=== PATIENT | female | born 1985 | race American Indian/Alaskan Native ===

== ENCOUNTER 2017-08-13 10:32 | Emergency (ER) | payer SELFPAY ==
[2017-08-13 11:20] VITALS: BP 107/77
[2017-08-13 11:48] LABS: Bacteria,Urine 1+ /HPF (Negative); Bilirubin,Urine NEG (Negative); Blood,Urine NEG (Negative); Ketones,Urine TR mg/dL (Negative); Leukocyte Esterase,Urine NEG (Negative); Mucus,Urine 2+ /HPF; Nitrite,Urine NEG (Negative)
== END 2017-08-13 17:27 | disposition left against medical advice (07) ==
LOC: ED 10:32
DX: Z53.21 Procedure and treatment not carried out due to patient leaving prior to being seen by health care provider (principal)
CPT/HCPCS: 81001

== ENCOUNTER 2017-09-26 14:52 | Emergency (ER) | payer MEDICAID ==
[2017-09-26 15:09] VITALS: BP 104/75
[2017-09-26 16:03] LABS: Basophils % (Auto) 0.7 % (0.0-1.8); Eosinophils % (Auto) 5.2 % (0.0-4.3); Hematocrit 36.1 % (30.3-42.9); Hemoglobin 12.1 gm/dl (10.1-14.3); Mean Corpuscular HGB Conc 34 % (30-34); Mean Corpuscular Hemoglobin 33 pg (28-32); Mean Corpuscular Volume 99 fl (79-97); Platelet Count 208 K/mm3 (140-440); Red Blood Count 3.66 M/mm3 (3.65-5.03); Red Cell Distribution Width 13.8 % (13.2-15.2); White Blood Count 3.3 K/mm3 (4.5-11.0)
[2017-09-26 17:11] LABS: Bilirubin,Urine Negative (Negative); Ketones,Urine Negative (Negative); Nitrite,Urine Negative (Negative); Protein,Urine <15 mg/dL mg/dL (Negative); Urobilinogen,Urine < 2.0 mg/dL (<2.0)
[2017-09-26 17:12] LABS: Blood,Urine Trace (Negative); Leukocyte Esterase,Urine Small (Negative)
--- NOTE | 2017-09-26 17:26 | Emergency Department Report ---
ED Female HPI - General Chief complaint: Vaginal Bleeding Stated complaint: POSSIBLE MISCARRIAGE Time Seen by Provider: 09/26/17 17:18 Source: patient Mode of arrival: Ambulatory Limitations: No Limitations - History of Present Illness Initial comments: Patient is 32 years old female with no significant past medical history she came today with 1 episode of vaginal bleeding happen yesterday. Patient stated that she checked into [facility] in July and she was told that she is and she did not have a follow-up since then. Patient denied any other symptoms. MD Complaint: vaginal bleeding - Related Data Previous Rx's Medication Instructions Recorded Last Taken Type Naproxen [Naprosyn] 500 mg PO BID #14 tablet 09/26/17 Unknown Rx Allergies Allergy/AdvReac Type Severity Reaction Status Date / Time Penicillins Allergy Unknown Verified 09/26/17 15:09 ED Review of Systems ROS: Stated complaint: POSSIBLE MISCARRIAGE Other details as noted in HPI Comment: All other systems reviewed and negative Constitutional: denies: chills, fever Cardiovascular: denies: chest pain, palpitations, dyspnea on exertion Gastrointestinal: denies: abdominal pain, nausea, vomiting Neurological: denies: headache, weakness ED Past Medical Hx - Past Medical History Previous Medical History?: Yes Hx HIV: Yes - Surgical History Past Surgical History?: Yes Additional Surgical History: Right hand surgery and had a I&d. - Social History Smoking Status: Former Smoker Substance Use Type: None - Medications Home Medications: Home Medications Medication Instructions Recorded Confirmed Last Taken Type Naproxen [Naprosyn] 500 mg PO BID #14 tablet 09/26/17 Unknown Rx ED Physical Exam - General Limitations: No Limitations General appearance: alert, in no apparent distress - Head Head exam: Present: normocephalic, normal inspection - ENT ENT exam: Present: normal exam, normal orophraynx, mucous membranes moist - Respiratory Respiratory exam: Present: normal lung sounds bilaterally - Cardiovascular Cardiovascular Exam: Present: regular rate, normal rhythm, normal heart sounds - GI/Abdominal GI/Abdominal exam: Present: soft, normal bowel sounds. Absent: distended, tenderness, guarding, rebound, rigid, mass, bruit, pulsatile mass - Extremities Exam Extremities exam: Present: normal inspection, full ROM - Back Exam Back exam: Present: normal inspection. Absent: CVA tenderness (R), CVA tenderness (L) - Neurological Exam Neurological exam: Present: alert, oriented X3, CN II-XII intact, normal gait - Skin Skin exam: Present: warm, intact ED Course Vital Signs 09/26/17 15:00 Temperature 98.6 F Pulse Rate 106 H Respiratory 16 Rate Blood Pressure 104/75 O2 Sat by Pulse 98 Oximetry ED Medical Decision Making - Lab Data Result diagrams: 09/26/17 15:43 Critical care attestation.: If time is entered above; I have spent that time in minutes in the direct care of this critically ill patient, excluding procedure time. ED Disposition Clinical Impression: Abnormal vaginal bleeding Disposition: DC-01 TO HOME OR SELFCARE Is pt being admited?: No Condition: Stable Instructions: Menstruation (ED) Prescriptions: Naproxen [Naprosyn] 500 mg PO BID #14 tablet Referrals: PRIMARY CARE, [Primary Care Provider] - 3-5 Days
== END 2017-09-26 17:34 | disposition home or self-care (01) ==
LOC: ED 14:52
DX: N93.8 Other specified abnormal uterine and vaginal bleeding (principal); Z88.0 Allergy status to penicillin; Z87.891 Personal history of nicotine dependence
CPT/HCPCS: 36415; 81001; 84702; 85025; 86850; 86900; 86901; 99283

== ENCOUNTER 2018-11-25 11:20 | Emergency (ER) | payer MEDICAID ==
[2018-11-25] MEDS ORDERED: TORADOL IM ONE (11:44)
--- NOTE | 2018-11-25 11:49 | Emergency Department Report ---
ED General Adult HPI - General Chief complaint: Fall Stated complaint: SLIP AND FALL Time Seen by Provider: 11/25/18 11:44 Source: patient Mode of arrival: Ambulatory Limitations: No Limitations - History of Present Illness Initial comments: This is a 33-year-old female, not known to this provider previously, who reports that she is not . Patient reports that 2 days ago, she had a mechanical slip and fall, landing on her lower back and head. She twisted her right knee, and left ankle. She is having pain in her lower back, right knee, and left lateral dorsal aspect of the foot. Pain aching and sharp, increases with palpation, range of motion, decreases with rest, does not radiate anywhere. She also complains of dry cough without fevers, chills or mucus production. She occasionally consumes tobacco, reports that people at home are occasionally smoking. She has not lost consciousness, there is no vomiting, there is no confusion, there is no ataxia. -: days(s) (2) Location: back, left, right, lower extremity Radiation: non-radiation Quality: aching Consistency: intermittent Improves with: rest Worsens with: movement Associated Symptoms: cough. denies: confusion, chest pain, diaphoresis, fever/chills, loss of appetite, malaise, nausea/vomiting, rash, seizure, shortness of breath, syncope, weakness - Related Data Previous Rx's Medication Instructions Recorded Last Taken Type Naproxen [Naprosyn] 500 mg PO BID #14 tablet 09/26/17 Unknown Rx Acetaminophen [Tylenol Arthritis] 650 mg PO Q6HR PRN #30 tablet.er 11/25/18 Unknown Rx Benzonatate [Tessalon Perles] 100 mg PO Q8HR PRN #30 capsule 11/25/18 Unknown Rx Fluticasone [Flonase] 1 spray NS QDAY #1 bottle 11/25/18 Unknown Rx Ibuprofen [Motrin] 600 mg PO Q8H PRN #30 tablet 11/25/18 Unknown Rx Allergies Allergy/AdvReac Type Severity Reaction Status Date / Time Penicillins Allergy Unknown Verified 09/26/17 15:09 ED Review of Systems ROS: Stated complaint: SLIP AND FALL Other details as noted in HPI Constitutional: malaise. denies: fever Eyes: denies: eye discharge ENT: congestion Respiratory: cough Cardiovascular: denies: chest pain Gastrointestinal: denies: abdominal pain Musculoskeletal: back pain, arthralgia, myalgia Skin: denies: lesions Neurological: denies: weakness, numbness, paresthesias, confusion, abnormal gait, vertigo ED Past Medical Hx - Past Medical History Previous Medical History?: Yes Hx Psychiatric Treatment: Yes (Depression, insomnia) Hx HIV: Yes Additional medical history: Herpes - Surgical History Past Surgical History?: Yes Additional Surgical History: Right hand surgery and had a I&d. - Social History Smoking Status: Current Every Day Smoker Substance Use Type: Marijuana - Medications Home Medications: Home Medications Medication Instructions Recorded Confirmed Last Taken Type Naproxen [Naprosyn] 500 mg PO BID #14 tablet 09/26/17 Unknown Rx Acetaminophen [Tylenol Arthritis] 650 mg PO Q6HR PRN #30 tablet.er 11/25/18 Unknown Rx Benzonatate [Tessalon Perles] 100 mg PO Q8HR PRN #30 capsule 11/25/18 Unknown Rx Fluticasone [Flonase] 1 spray NS QDAY #1 bottle 11/25/18 Unknown Rx Ibuprofen [Motrin] 600 mg PO Q8H PRN #30 tablet 11/25/18 Unknown Rx ED Physical Exam - General Limitations: No Limitations General appearance: alert, in no apparent distress - Head Head exam: Present: atraumatic, normocephalic - Eye Eye exam: Present: normal appearance, PERRL, EOMI, other (visual acuity intact to finger counting, color perception, reading at a close distance). Absent: nystagmus - ENT ENT exam: Present: normal exam, normal orophraynx, mucous membranes moist, normal external ear exam - Neck Neck exam: Present: normal inspection, full ROM. Absent: tenderness, meningismus - Respiratory Respiratory exam: Present: normal lung sounds bilaterally. Absent: respiratory distress - Cardiovascular Cardiovascular Exam: Present: regular rate, normal rhythm, normal heart sounds. Absent: bradycardia, tachycardia, irregular rhythm, systolic murmur, diastolic murmur, rubs, gallop - GI/Abdominal GI/Abdominal exam: Present: soft. Absent: distended, tenderness, guarding, re bound, rigid, pulsatile mass - Extremities Exam Extremities exam: Present: normal inspection, full ROM, other (2+ pulses noted in the bilateral upper, lower extremities. Compartments soft. No long bony tenderness. The pelvis is stable.). Absent: pedal edema, joint swelling, calf tenderness - Back Exam Back exam: Present: normal inspection, full ROM. Absent: tenderness, CVA tenderness (R), paraspinal tenderness, vertebral tenderness - Neurological Exam Neurological exam: Present: alert, oriented X3, CN II-XII intact, normal gait, other (Extraocular movements intact. Tongue midline. No facial droop. Facial sensation intact to light touch in the V1, V2, V3 distribution bilaterally. 5 and 5 strength in 4 extremities.. Sensation is intact to light touch in 4 extremities.). Absent: motor sensory deficit - Psychiatric Psychiatric exam: Present: normal affect, normal mood - Skin Skin exam: Present: warm, dry, intact, normal color. Absent: rash ED Course Vital Signs 11/25/18 11/25/18 11/25/18 11:26 11:57 12:07 Temperature 97.8 F 97.6 F Pulse Rate 81 18 L Respiratory 16 16 18 Rate Blood Pressure 118/88 Blood Pressure 130/72 [Right] O2 Sat by Pulse 97 Oximetry ED Medical Decision Making - Lab Data Vital Signs 11/25/18 11:26 Temperature 97.8 F Pulse Rate 81 Respiratory 16 Rate Blood Pressure 118/88 O2 Sat by Pulse 97 Oximetry - Medical Decision Making Differential diagnosis, including without limited to: Bronchitis, smoker's cough, sprain, strain, mechanical fall Assessment and plan: 33-year-old female who is 48 hours status post minor blunt trauma. GCS of 15, NIH score of 0,Patient is clinically sober at this time. The cervical spine is cleared through nexus and portuguese c spine rule On my initial assessment the patient is afebrile, speaking and playing on a cellular phone, and in no acute distress. She walks with a steady gait. She does not have any significant long bony tenderness. In addition, does not have any focal pulmonary findings and is saturating well on room air. Counseled patient to discontinue tobacco consumption, and to avoid exposure to tobacco consumption. Further counseled and reassured patient that musculoskeletal pain likely natural history secondary to minor blunt traumatic mechanism, and based on the available history and physical, and patient does not require emergency radiology studies. Patient will be discharged with appropriate pain medication and appropriate guidance and counseling. Critical care attestation.: If time is entered above; I have spent that time in minutes in the direct care of this critically ill patient, excluding procedure time. ED Disposition Clinical Impression: Bronchitis, History of fall Disposition: DC-01 TO HOME OR SELFCARE Is pt being admited?: No Does the pt Need Aspirin: No Condition: Stable Instructions: Acute Bronchitis (ED) Additional Instructions: Pain typically gets worse before it gets better. It will likely take 7-10 days for pain to completely resolve. Rest, avoid heavy lifting, and avoid strenuous physical activities. Follow up with the primary care doctor within the next 4-6 weeks. Discontinue tobacco consumption, and avoid exposure to individuals who are smoking tobacco and any substances. Take the pain medication as needed/directed, and return to the ER right away with new pain, worsened pain, migration of pain, projectile vomiting, change in mental status, confusion, inability to speak, inability to breathe, new, worsening or different symptoms. Prescriptions: Acetaminophen [Tylenol Arthritis] 650 mg PO Q6HR PRN #30 tablet.er PRN Reason: Pain Benzonatate [Tessalon Perles] 100 mg PO Q8HR PRN #30 capsule PRN Reason: Cough Fluticasone [Flonase] 1 spray NS QDAY #1 bottle Ibuprofen [Motrin] 600 mg PO Q8H PRN #30 tablet PRN Reason: Pain Referrals: [facility] [Provider Group] - as needed Forms: Work/School Release Form(ED)
[2018-11-25 12:09] VITALS: BP 130/72
== END 2018-11-25 12:07 | disposition home or self-care (01) ==
LOC: ED 11:20
DX: M54.5 Low back pain (principal); M25.561 Pain in right knee; M25.572 Pain in left ankle and joints of left foot; F32.9 Major depressive disorder, single episode, unspecified; F17.200 Nicotine dependence, unspecified, uncomplicated; F12.10 Cannabis abuse, uncomplicated; W01.0XXA Fall on same level from slipping, tripping and stumbling without subsequent striking against object, initial encounter; Y93.89 Activity, other specified; Y92.89 Other specified places as the place of occurrence of the external cause; Y99.8 Other external cause status
CPT/HCPCS: 96372; 99282; J1885

== ENCOUNTER 2020-05-21 17:11 | Emergency (ER) | payer MEDICAID ==
[2020-05-21 17:40] VITALS: BP 119/82
--- NOTE | 2020-05-21 19:35 | Emergency Department Report ---
Chief Complaint: Dental/Oral Stated Complaint: ABD PAIN Time Seen by Provider: 05/21/20 19:29 - HPI History of Present Illness: This is a 35-year-old female who presents the ED complaining of mild thrush of the mouth and swelling of the acid reflux. Patient states that she has not been able to follow-up with her doctor due to throat issues that she has been having. Patient also notes that she wants STD testing done. She denies fever/chills/nausea vomiting/abdominal pain/shortness of breath/dysuria or vaginal bleeding - ROS Review of Systems: As noted in HPI - Exam Vital Signs: Vital Signs 05/21/20 17:37 Temperature 99.4 F Pulse Rate 92 H Respiratory 16 Rate Blood Pressure 119/82 O2 Sat by Pulse 99 Oximetry Physical Exam: GENERAL: Alert and oriented x3, no apparent distress, Normal Gait, atraumatic. MOUTH:Mouth is well hydrated and without lesions. Tonsils nonerythematous or swollen, Uvula midline, Tongue not elevated. Mucous membranes are moist. Posterior pharynx clear, no exudate or lesions. Patent airways. White lesions seen at the top of Oral mucosa NECK: Supple. Non edematous, No carotid bruits. No lymphadenopathy or thyromegaly. SKIN: Warm and dry, No lesions, No ulceration or induration present. MSE screening note: Focused history and physical exam performed. Due to findings the following was ordered: ED Disposition for MSE Clinical Impression: Oral candidiasis Disposition: DC-01 TO HOME OR SELFCARE Is pt being admited?: No Does the pt Need Aspirin: No Condition: Stable Instructions: Oral Candidiasis (ED), Gastroesophageal Reflux Disease (ED) Additional Instructions: Make sure to follow up with the primary care physician as discussed. Take all your medications as you've been prescribed. If you have any worsening symptoms or develop new symptoms please return to ED immediately. Prescriptions: Fluconazole (Nf) [Diflucan TAB] 150 mg PO DAILY #5 tablet Omeprazole 20 mg PO DAILY #40 tablet. Famotidine [Pepcid] 20 mg PO BID #40 tablet Referrals: PRIMARY CARE, [Primary Care Provider] - 3-[address] [facility] [place] [Outside] - 3-5 Days [facility] [Outside] - 3-5 Days [facility] [Outside] - 3-5 Days Forms: Work/School Release Form(ED) Time of Disposition: 19:39
== END 2020-05-21 19:48 | disposition home or self-care (01) ==
LOC: ED 17:11
DX: B37.0 Candidal stomatitis (principal); Z88.0 Allergy status to penicillin
CPT/HCPCS: 99282

== ENCOUNTER 2020-07-19 10:14 | Emergency (ER) | payer MEDICAID ==
[2020-07-19] MEDS ORDERED: MORPHINE 4 MG/1 ML INJ IV ONE (11:03)
[2020-07-19] MEDS ORDERED: CLINDAMYCIN 600 MG/50 mL 600 MG/50 ML BAG IV ONE (11:03)
[2020-07-19] MEDS ORDERED: ONDANSETRON 4 MG/2 ML INJ IV ONE (11:03)
[2020-07-19] MEDS ORDERED: SODIUM CHLORIDE 0.9% 1000 ML 1,000 ML IV ONE (11:03)
[2020-07-19] MEDS ORDERED: cefTRIAXone/NS 2 GM/100 ML 2 GM/100 ML BAG IV ONE (11:37)
--- NOTE | 2020-07-19 11:45 | Emergency Department Report ---
<GARY MICHAEL - Last Filed: 07/19/20 18:05> ED Eye Problem HPI - General Chief complaint: Eye Problems Stated complaint: swollen eye Time Seen by Provider: 07/19/20 10:52 Source: patient Mode of arrival: Ambulatory Limitations: No Limitations - History of Present Illness Initial comments: Patient is a 35-year-old female presents emergency room with complaints of right eye swelling and pain that began last night. She states initially it felt like she had a stye and there was a small amount of swelling. She states that by midnight the swelling had significantly increased and she could not open the eye secondary to the swelling. She states that when she does manually open the eye her vision is still normal. She denies getting anything into the eye. She denies any contact lens use. She states that she has had associated drainage, crusting, matting of the eyelashes. She denies any fever or vomiting. she denies ever having this in the past. She has a past medical history of HIV and states that it has been a few months since she has taken her antivirals. She states that she previously used to go to [facility]. She has an allergy to penicillin. - Related Data Previous Rx's Medication Instructions Recorded Last Taken Type Naproxen [Naprosyn] 500 mg PO BID #14 tablet 09/26/17 Unknown Rx Acetaminophen [Tylenol Arthritis] 650 mg PO Q6HR PRN #30 tablet.er 11/25/18 Unknown Rx Benzonatate [Tessalon Perles] 100 mg PO Q8HR PRN #30 capsule 11/25/18 Unknown Rx Fluticasone [Flonase] 1 spray NS QDAY #1 bottle 11/25/18 Unknown Rx Ibuprofen [Motrin] 600 mg PO Q8H PRN #30 tablet 11/25/18 Unknown Rx Famotidine [Pepcid] 20 mg PO BID #40 tablet 05/21/20 Unknown Rx Fluconazole (Nf) [Diflucan TAB] 150 mg PO DAILY #5 tablet 05/21/20 Unknown Rx Omeprazole 20 mg PO DAILY #40 tablet. 05/21/20 Unknown Rx Allergies Allergy/AdvReac Type Severity Reaction Status Date / Time Penicillins Allergy Unknown Verified 09/26/17 15:09 ED Review of Systems Comment: All other systems reviewed and negative ED Past Medical Hx - Past Medical History Previous Medical History?: Yes Hx Psychiatric Treatment: Yes (Depression, insomnia) Hx HIV: Yes (not on anti-virals) Additional medical history: Herpes - Surgical History Additional Surgical History: Right hand surgery and had a I&d. - Social History Smoking Status: Never Smoker Substance Use Type: Marijuana - Medications Home Medications: Home Medications Medication Instructions Recorded Confirmed Last Taken Type Naproxen [Naprosyn] 500 mg PO BID #14 tablet 09/26/17 Unknown Rx Acetaminophen [Tylenol Arthritis] 650 mg PO Q6HR PRN #30 tablet.er 11/25/18 Unknown Rx Benzonatate [Tessalon Perles] 100 mg PO Q8HR PRN #30 capsule 11/25/18 Unknown Rx Fluticasone [Flonase] 1 spray NS QDAY #1 bottle 11/25/18 Unknown Rx Ibuprofen [Motrin] 600 mg PO Q8H PRN #30 tablet 11/25/18 Unknown Rx Famotidine [Pepcid] 20 mg PO BID #40 tablet 05/21/20 Unknown Rx Fluconazole (Nf) [Diflucan TAB] 150 mg PO DAILY #5 tablet 05/21/20 Unknown Rx Omeprazole 20 mg PO DAILY #40 tablet. 05/21/20 Unknown Rx ED Physical Exam - General Limitations: No Limitations General appearance: alert, in no apparent distress - Eye Eye exam: Present: PERRL, periorbital swelling (right upper), other (there is right upper eye edema and erythema of the eyelid, there is edema present to the right lateral eye conjunctiva/sclera, pt has pain with EOM) - ENT ENT exam: Present: mucous membranes moist - Neurological Exam Neurological exam: Present: alert, oriented X3 - Psychiatric Psychiatric exam: Present: normal affect, normal mood - Skin Skin exam: Present: warm, dry ED Course - Reevaluation(s) Reevaluation #1: 07/19/20 14:[address] Francisco, ER attending regarding patient presentation and CT results, advised to transfer patient to facility with ophthalmology - Consultations Consultation #1: 07/19/20 14:08 Jacques, tax record clerk called the [facility] transfer line and they are on diversion, will call [facility] transfer line 07/19/20 14:11 spoke to the [facility] transfer line will call back with ophthalmology 07/19/20 14:[address] Puga, roller billet mill at [facility], will accept and resume care of patient, no further recommendations at this time, will be transported via our EMS service, ER to ER transfer ED Medical Decision Making - Lab Data Result diagrams: 07/19/20 11:07 07/19/20 11:07 Lab Results 07/19/20 07/19/20 07/19/20 Range/Units 11:07 11:07 11:07 WBC 2.9 L (4.5-11.0) K/mm3 RBC 3.71 (3.65-5.03) M/mm3 Hgb 12.4 (10.1-14.3) gm/dl Hct 35.7 (30.3-42.9) % MCV 96 (79-97) fl MCH 34 H (28-32) pg MCHC 35 H (30-34) % RDW 14.7 (13.2-15.2) % Plt Count 178 (140-440) K/mm3 Lymph % (Auto) Wet Cleaner Machine [place] % (Auto) Wet Cleaner Machine Eos % (Auto) Wet Cleaner Machine Baso % (Auto) Wet Cleaner Machine Lymph # Wet Cleaner Machine [place] # Wet Cleaner Machine Eos # Wet Cleaner Machine Baso # Wet Cleaner Machine Seg Neutrophils % Wet Cleaner Machine Seg Neutrophils # Wet Cleaner Machine Sodium 137 (137-145) mmol/L Potassium 3.7 (3.6-5.0) mmol/L Chloride 97.3 L (98-107) mmol/L Carbon Dioxide 23 (22-30) mmol/L Anion Gap 20 mmol/L BUN 9 (7-17) mg/dL Creatinine 0.7 (0.6-1.2) mg/dL Estimated GFR > 60 ml/min BUN/Creatinine Ratio 13 % Glucose 79 (65-100) mg/dL Calcium 9.3 (8.4-10.2) mg/dL Total Bilirubin 0.80 (0.1-1.2) mg/dL AST 22 (5-40) units/L ALT 29 (7-56) units/L Alkaline Phosphatase 71 (35-129) units/L Total Protein 9.3 H (6.3-8.2) g/dL Albumin 4.0 (3.9-5) g/dL Albumin/Globulin Ratio 0.8 % HCG, Qual Negative (Negative) Vital Signs 07/19/20 07/19/20 07/19/20 10:16 10:19 14:43 Temperature 98.4 F 98.4 F Pulse Rate 85 Respiratory 18 16 Rate Blood Pressure 146/100 [Right] O2 Sat by Pulse 98 98 Oximetry 07/19/20 15:07 Temperature Pulse Rate 80 Respiratory 16 Rate Blood Pressure 141/91 [Right] O2 Sat by Pulse 99 Oximetry - Radiology Data Radiology results: report reviewed cc: MAI KNOX ADDENDUM Addendum report: There is a line runner error in the first sentence of the report which reads "ORBITS: Preseptal soft tissue swelling is observed anterior to the right globe in addition to edema throughout the abdomen....". This should read "ORBITS: Preseptal soft tissue swelling is observed anterior to the right globe in addition to edema throughout the eyelid...." Signer Name: Bruce Elder MD Signed: 07/19/2020 2:07 PM Workstation Name: [id number] Addendum Transcribed By: Addendum Dictated By: Bruce Elder MD Addendum Electronically Authenticated By: Bruce Elder MD Addendum Signed Date/Time: 07/19/201406 DD/ /02/1406 TD/TT: / CT MAXILLOFACIAL WITH CONTRAST INDICATION / CLINICAL INFORMATION: Right eye swelling.. TECHNIQUE: All CT scans at this location are performed using CT dose reduction for ALARA by means of automated exposure control. Contrast dose report: Omnipaque 300: 100 mL administered intravenously. COMPARISON: None available. FINDINGS: ORBITS: Preseptal soft tissue swelling is observed anterior to the right globe. In addition to edema throughout the abdomen there is a fluid collection between the eyelid and globe located along the lateral aspect of the globe. An abscess in this location cannot be excluded. Note is made of marked enlargement of the lacrimal gland. Lacrimal gland is likely involved by this infectious process. The left lacrimal gland is also enlarged but not to the same degree. Is there history consistent with lupus or Sjogren's syndrome No post septal abnormalities are seen on evaluation of the right orbit. Extraocular muscles, optic nerves and superior ophthalmic vein all have an unremarkable appearance. The intraconal and extraconal fat has a normal appearance. Evaluation of the left orbit reveals no abnormality aside from enlargement of the left lacrimal gland. FACIAL BONES: No fracture or other significant abnormality. PARANASAL SINUSES: Paranasal sinuses are free from inflammatory mucosal disease. NASAL CAVITY: Evaluation of the nasal cavity is remarkable for hypoplasia of the turbinates with increased widening of the air passageways in the nasal cavity. There is disruption of the nasal septum with formation of the anterior cartilaginous portion of the nasal septum. This could be due to a variety of avulsion vascular or granulomatous diseases. This can also be seen in the setting of chronic inhalational injury. VISUALIZED INTRACRANIAL STRUCTURES: No significant abnormality. ADDITIONAL FINDINGS: None. IMPRESSION: 1. Marked preseptal soft tissue swelling right orbit. In addition to swelling of the eyelid there is a crescentic fluid collection between the eyelid and the lateral aspect of the right globe. An abscess cannot be excluded in this location. 2. Bilateral lacrimal gland enlargement. This is more pronounced on the right where the presumed orbital infection may involve the lacrimal gland. 3. Bilateral lacrimal gland enlargement suggests the possibility of sarcoidosis syndrome or lupus. 4. Perforation of the cartilaginous nasal septum as described above. Signer Name: Bruce Elder MD Signed: 07/19/2020 1:52 PM Workstation Name: [id number] Transcribed By: Dictated By: Bruce Elder MD Electronically Authenticated By: Bruce Elder MD Signed Date/Time: 07/19/20 1352 DD/ 1345 TD/TT: - Medical Decision Making Patient is a 35-year-old female presents emergency room with complaints of right eye swelling and pain that began last night. She states initially it felt like she had a stye and there was a small amount of swelling. She states that by midnight the swelling had significantly increased and she could not open the eye secondary to the swelling. She states that when she does manually open the eye her vision is still normal. She denies getting anything into the eye. She denies any contact lens use. She states that she has had associated drainage, crusting, matting of the eyelashes. She denies any fever or vomiting. she denies ever having this in the past. She has a past medical history of HIV and states that it has been a few months since she has taken her antivirals. She states that she previously used to go to [facility]. She has an allergy to penicillin. vss. on exam: there is right upper eye edema and erythema of the eyelid, there is edema present to the right lateral eye conjunctiva/sclera, pt has pain with EOM. Exam is concerning for preseptal/orbital cellulitis versus abscess. Labs and CT ordered. Labs are stable. CT of the orbit with contrast 1. Marked preseptal soft tissue swelling right orbit. In addition to swelling of the eyelid there is a crescentic fluid collection between the eyelid and the lateral aspect of the right globe. An abscess cannot be excluded in this location. 2. Bilateral lacrimal gland enlargement. This is more pronounced on the right where the presumed orbital infection may involve the lacrimal gland. 3. Bilateral lacrimal gland enlargement suggests the possibility of sarcoidosis syndrome or lupus. 4. Perforation of the cartilaginous nasal septum as described above. Spoke to Dr. Francisco, ER attending regarding patient presentation and CT results, advised to transfer patient to facility with ophthalmology. Patient given 1 L IV fluids, pain medication, clindamycin, ceftriaxone. Spoke to Dr. Puga, roller billet mill at [facility], will accept and resume care of patient, no further recommendations at this time, will be transported via our EMS service, ER to ER transfer. Discussed all results with patient and answered questions and patient agrees to transfer. Patient transported via EMS. - Differential Diagnosis Preseptal/ orbital cellulitis, blepharitis, dacryocystitis, abscess ED Disposition Clinical Impression: Preseptal cellulitis of right eye Abscess of eye Qualifiers: Laterality: right Qualified Code(s): H44.001 - Unspecified purulent endophthalmitis, right eye Disposition: DC/TX-70 ANOTHER TYPE HLTHCARE Is pt being admited?: No Does the pt Need Aspirin: No Condition: Stable Referrals: SURENDRA FAITH MD [Primary Care Provider] - 3-5 Days Time of Disposition: 14:44 Print Language: OCCITAN <YUDY FRANCISCO - Last Filed: 07/20/20 07:40> ED Review of Systems ROS: Stated complaint: swollen eye Other details as noted in HPI ED Course Vital Signs 07/19/20 07/19/20 07/19/20 10:16 10:19 14:43 Temperature 98.4 F 98.4 F Pulse Rate 85 Respiratory 18 16 Rate Blood Pressure 146/100 [Right] O2 Sat by Pulse 98 98 Oximetry 07/19/20 15:07 Temperature Pulse Rate 80 Respiratory 16 Rate Blood Pressure 141/91 [Right] O2 Sat by Pulse 99 Oximetry ED Medical Decision Making - Lab Data Result diagrams: 07/19/20 11:07 07/19/20 11:07 - Medical Decision Making Patient is a 35 years old female presented to our ER complaining of right eye swelling and pain for 1 day. Patient found to have significant preseptal orbital cellulitis. CT scan with IV contrast showed possibility of abscess. Patient transferred to [facility] after discussion with , roller billet mill on-call who accepted the patient to be transferred. Patient transfer in a stable condition. Critical Care Time: Yes Critical care time in (mins) excluding proc time.: 30 Critical care attestation.: If time is entered above; I have spent that time in minutes in the direct care of this critically ill patient, excluding procedure time.
[2020-07-19 11:46] LABS: Hematocrit 35.7 % (30.3-42.9); Hemoglobin 12.4 gm/dl (10.1-14.3); Mean Corpuscular HGB Conc 35 % (30-34); Mean Corpuscular Volume 96 fl (79-97); Platelet Count 178 K/mm3 (140-440); Red Blood Count 3.71 M/mm3 (3.65-5.03); Red Cell Distribution Width 14.7 % (13.2-15.2)
[2020-07-19 12:08] LABS: Alanine Aminotransferase 29 units/L (7-56); Blood Urea Nitrogen 9 mg/dL (7-17); Calcium 9.3 mg/dL (8.4-10.2); Hemolysis Index 9
[2020-07-19 12:17] LABS: BUN/Creatinine Ratio 13
--- NOTE | 2020-07-19 13:56 | Cat Scan Report ---
CT MAXILLOFACIAL WITH CONTRAST INDICATION / CLINICAL INFORMATION: Right eye swelling.. TECHNIQUE: All CT scans at this location are performed using CT dose reduction for ALARA by means of automated e xposure control. Contrast dose report: Omnipaque 300: 100 mL administered intravenously. COMPARISON: None available. FINDINGS: ORBITS: Preseptal soft tissue swelling is observed anterior to the right globe. In addition to edema throughout the abdomen there is a fluid collection between the eyelid and globe located along the lat eral aspect of the globe. An abscess in this location cannot be excluded. Note is made of marked enla rgement of the lacrimal gland. Lacrimal gland is likely involved by this infectious process. The left lacrimal gland is also enlarged but not to the same degree. Is there history consistent with lupus o r Sjogren's syndrome No post septal abnormalities are seen on evaluation of the right orbit. Extraocu lar muscles, optic nerves and superior ophthalmic vein all have an unremarkable appearance. The intra conal and extraconal fat has a normal appearance. Evaluation of the left orbit reveals no abnormality aside from enlargement of the left lacrimal gland. FACIAL BONES: No fracture or other significant abnormality. PARANASAL SINUSES: Paranasal sinuses are free from inflammatory mucosal disease. NASAL CAVITY: Evaluation of the nasal cavity is remarkable for hypoplasia of the turbinates with incr eased widening of the air passageways in the nasal cavity. There is disruption of the nasal septum wi th formation of the anterior cartilaginous portion of the nasal septum. This could be due to a variet y of avulsion vascular or granulomatous diseases. This can also be seen in the setting of chronic inh alational injury. VISUALIZED INTRACRANIAL STRUCTURES: No significant abnormality. ADDITIONAL FINDINGS: None. IMPRESSION: 1. Marked preseptal soft tissue swelling right orbit. In addition to swelling of the eyelid there i s a crescentic fluid collection between the eyelid and the lateral aspect of the right globe. An absc ess cannot be excluded in this location. 2. Bilateral lacrimal gland enlargement. This is more pronounced on the right where the presumed orbi jazmyn infection may involve the lacrimal gland. 3. Bilateral lacrimal gland enlargement suggests the possibility of sarcoidosis syndrome or lupus. 4. Perforation of the cartilaginous nasal septum as described above. Signer Name: Bruce Elder MD Signed: 07/19/2020 1:52 PM Workstation Name: [id number]
[2020-07-19 15:08] VITALS: BP 141/91
== END 2020-07-19 15:43 | disposition other institution (70) ==
LOC: ED 10:14
DX: L03.213 Periorbital cellulitis (principal); H44.009 Unspecified purulent endophthalmitis, unspecified eye; F32.9 Major depressive disorder, single episode, unspecified; F12.90 Cannabis use, unspecified, uncomplicated; Z21 Asymptomatic human immunodeficiency virus [HIV] infection status; Z88.0 Allergy status to penicillin; Z79.899 Other long term (current) drug therapy; Z98.890 Other specified postprocedural states
CPT/HCPCS: 36415; 70481; 80053; 84703; 85025; 96365; 96366; 96368; 96375; 99285; J0696; J2270; J2405; J7030; Q9967

== ENCOUNTER 2021-02-06 10:26 | Emergency (ER) | payer MEDICAID ==
[2021-02-06 10:37] VITALS: BP 133/91
--- NOTE | 2021-02-06 10:45 | Emergency Department Report ---
ED General Adult HPI - General Chief complaint: Urogenital-Female Stated complaint: BREAK OUT HERPES/THRUSH IN MOUTH PUI?: No Source: patient Mode of arrival: Ambulatory Limitations: No Limitations - History of Present Illness Initial comments: 36-year-old -[place] female with a past medical history of HIV, herpes, thrush, depression and anxiety. Patient states that her thrush and her herpes of her genitalia area started breaking out yesterday. Patient states that she is still able to taste her food and not much pain at this time. Patient states that she is on antiviral medications but has not seen her [place] IVP provider in at least 6 months. Secondary to pandemic. Patient denies any suicidal homicidal ideation. Patient reports her pain is 3 out of 10 at this time. Onset/Timin Location: mouth, genitals Severity scale (0 -10): 3 Quality: stabbing, crushing - Related Data Previous Rx's Medication Instructions Recorded Last Taken Type Naproxen [Naprosyn] 500 mg PO BID #14 tablet 09/26/17 Unknown Rx Acetaminophen [Tylenol Arthritis] 650 mg PO Q6HR PRN #30 tablet.er 11/25/18 Unknown Rx Benzonatate [Tessalon Perles] 100 mg PO Q8HR PRN #30 capsule 11/25/18 Unknown Rx Fluticasone [Flonase] 1 spray NS QDAY #1 bottle 11/25/18 Unknown Rx Ibuprofen [Motrin] 600 mg PO Q8H PRN #30 tablet 11/25/18 Unknown Rx Famotidine [Pepcid] 20 mg PO BID #40 tablet 05/21/20 Unknown Rx Fluconazole (Nf) [Diflucan TAB] 150 mg PO DAILY #5 tablet 05/21/20 Unknown Rx Omeprazole 20 mg PO DAILY #40 tablet. 05/21/20 Unknown Rx Acyclovir 400 mg PO 5XD 5 Days #25 tablet 02/06/21 Unknown Rx Fluconazole [Diflucan TAB] 200 mg PO QDAY 3 Days #3 tablet 02/06/21 Unknown Rx Allergies Allergy/AdvReac Type Severity Reaction Status Date / Time Penicillins Allergy Unknown Verified 09/26/17 15:09 ED Review of Systems ROS: Stated complaint: BREAK OUT HERPES/THRUSH IN MOUTH Other details as noted in HPI Comment: All other systems reviewed and negative ED Past Medical Hx - Past Medical History Previous Medical History?: Yes Hx Psychiatric Treatment: Yes (Depression, insomnia) Hx HIV: Yes (not on anti-virals) Additional medical history: Herpes - Surgical History Past Surgical History?: Yes Additional Surgical History: Right hand surgery and had a I&d. - Social History Smoking Status: Current Every Day Smoker Substance Use Type: Alcohol, Marijuana - Medications Home Medications: Home Medications Medication Instructions Recorded Confirmed Last Taken Type Naproxen [Naprosyn] 500 mg PO BID #14 tablet 09/26/17 Unknown Rx Acetaminophen [Tylenol Arthritis] 650 mg PO Q6HR PRN #30 tablet.er 11/25/18 Unknown Rx Benzonatate [Tessalon Perles] 100 mg PO Q8HR PRN #30 capsule 11/25/18 Unknown Rx Fluticasone [Flonase] 1 spray NS QDAY #1 bottle 11/25/18 Unknown Rx Ibuprofen [Motrin] 600 mg PO Q8H PRN #30 tablet 11/25/18 Unknown Rx Famotidine [Pepcid] 20 mg PO BID #40 tablet 05/21/20 Unknown Rx Fluconazole (Nf) [Diflucan TAB] 150 mg PO DAILY #5 tablet 05/21/20 Unknown Rx Omeprazole 20 mg PO DAILY #40 tablet.dr 05/21/20 Unknown Rx Acyclovir 400 mg PO 5XD 5 Days #25 tablet 02/06/21 Unknown Rx Fluconazole [Diflucan TAB] 200 mg PO QDAY 3 Days #3 tablet 02/06/21 Unknown Rx ED Physical Exam - General Limitations: No Limitations General appearance: alert, in no apparent distress, cachectic - Head Head exam: Present: atraumatic, normocephalic - Eye Eye exam: Present: normal appearance - ENT ENT exam: Present: mucous membranes moist - Expanded ENT Exam Expanded Mouth exam: Present: other (Right thin oval spots on her buccal mucosa and hard palate and soft palate) - Neck Neck exam: Present: normal inspection - Respiratory Respiratory exam: Present: normal lung sounds bilaterally. Absent: respiratory distress - Cardiovascular Cardiovascular Exam: Present: regular rate - GI/Abdominal GI/Abdominal exam: Present: soft. Absent: distended - Extremities Exam Extremities exam: Present: normal inspection - Back Exam Back exam: Present: normal inspection - Neurological Exam Neurological exam: Present: alert, oriented X3, normal gait - Psychiatric Psychiatric exam: Present: normal affect, normal mood - Skin Skin exam: Present: warm, dry, intact ED Course Vital Signs 02/06/21 02/06/21 10:30 11:41 Temperature 99.3 F 99.3 F Pulse Rate 93 H 93 H Respiratory 18 18 Rate Blood Pressure 133/91 Blood Pressure 133/91 [Left] O2 Sat by Pulse 99 99 Oximetry ED Medical Decision Making - Medical Decision Making 36-year-old -[place] female with a past medical history of HIV, herpes, thrush, depression and anxiety. Patient states that her thrush and her herpes of her genitalia area started breaking out yesterday. Patient states that she is still able to taste her food and not much pain at this time. Patient states that she is on antiviral medications but has not seen her [place] IVP provider in at least 6 months. Secondary to pandemic. Patient denies any suicidal homicidal ideation. Patient reports her pain is 3 out of 10 at this time. Patient was given nystatin swish and swallow here in the ER and will be discharged on Diflucan and acyclovir. Patient instructed to follow-up with her [place] provider to have her CD4 and viral load checked as this may be unstable secondary to having opportunistic disease such as thrush and herpes. Also discussed with patient to discuss with her healthcare provider regarding her depression. Critical care attestation.: If time is entered above; I have spent that time in minutes in the direct care of this critically ill patient, excluding procedure time. ED Disposition Clinical Impression: Oral thrush, Herpes simplex of female genitalia Disposition: -01 TO HOME OR SELFCARE Is pt being admited?: No Does the pt Need Aspirin: No Condition: Stable Instructions: Genital Herpes, Oral Thrush, Adult, [id number] Additional Instructions: Please take medications as prescribed. Is very important you follow-up with [facility] to have your CD4 viral load checked. Also recommended you discuss your depression and anxiety with your health care provider. Prescriptions: Acyclovir 400 mg PO 5XD 5 Days #25 tablet Fluconazole [Diflucan TAB] 200 mg PO QDAY 3 Days #3 tablet Referrals: [facility] [Outside] - 3-5 Days Forms: Work/School Release Form(ED)
[2021-02-06] MEDS ORDERED: NYSTATIN 500,000 UNIT/5 ML ORAL LIQD PO ONE (10:49)
== END 2021-02-06 11:41 | disposition home or self-care (01) ==
LOC: ED 10:26
DX: B37.0 Candidal stomatitis (principal); A60.00 Herpesviral infection of urogenital system, unspecified; F32.9 Major depressive disorder, single episode, unspecified; F17.200 Nicotine dependence, unspecified, uncomplicated; F12.10 Cannabis abuse, uncomplicated; Z21 Asymptomatic human immunodeficiency virus [HIV] infection status; Z79.899 Other long term (current) drug therapy
CPT/HCPCS: 99282

== ENCOUNTER 2021-04-19 19:08 | Emergency (ER) | payer MEDICAID | END 2021-04-20 | disposition left against medical advice (07) | LOC: ED 19:08 | DX: B37.9 Candidiasis, unspecified (principal); Z53.21 Procedure and treatment not carried out due to patient leaving prior to being seen by health care provider ==